=== PATIENT | male | born 1950 | race Caucasian/White ===

== ENCOUNTER 2019-02-26 16:48 | Emergency (ER) | payer MEDICARE, OTHER ==
[~2019-02-26 16:48] MED LIST: EPINEPHRINE ABBOJECT 1 MG ONE; SODIUM BICARBONATE 50 MEQ/50 ML ABBOJECT IV ONE
[2019-02-26] MEDS ORDERED: Sodium Chloride 0.9% 1000 ML 1,000 ML IV ONE (17:10)
[2019-02-26 17:21] LABS: Hematocrit 44.3 % (42-50); Hemoglobin 14.7 gm/dl (12.5-18.0); Mean Cell Volume 96.9 fl (78-100); Mean Corpuscular Hemoglobin 32.2 pg (26-32); Mean Corpuscular Hgb Concent. 33.2 g/dl (32-36); Mean Platelet Volume 13.4 fl (6-9.5); Platelet Count 110 K/mm3 (150-450); Red Blood Count 4.57 M/mm3 (4.1-5.6); Red Cell Distribution Width 12.4 % (11.5-14.0); White Blood Count 15.1 K/mm3 (4.0-10.5)
[2019-02-26 17:23] LABS: VBG BASE EXCESS -20.4 (-2.0-2.0); VBG CARBOXYHEMOGLOBIN 3.2 % T HGB (0.0-6.9); VBG HCO3- 16.1 meq/L (22-28); VBG HEMOGLOBIN 14.9; VBG O2 SATURATION 33.5 (95-100); VBG POTASSIUM 3.4 (3.5-5.1)
[2019-02-26 17:24] LABS: VBG pH 6.81 (7.32-7.42)
[2019-02-26 17:26] LABS: ALBUMIN 3.1 g/dL (3.5-5.0); BILIRUBIN,TOTAL 0.4 mg/dL (0.2-1.3); Creatinine 1 1.49 mg/dL (0.66-1.25); Potassium 3.3 mmol/L (3.5-5.1); Total Protein 5.9 g/dL (6.3-8.2)
--- NOTE | 2019-02-26 17:31 | ERPHSYRPT ---
- History of Present Illness Source: EMS Exam Limitations: clinical condition Physician History: Pt presented to the ER via EMS, coding. Pt was at home, and he fell to the floor coded. EMS were called and got to house in 4 min. The pt was intubated and coded by EMS. He did get shocked twice on route. By the time the pt got to the ER, he was in PEA arrest. compression and code resumed. Timing/Duration: today Activities at Onset: none Modifying Factors: Improves With: nothing Aspirin Treatment Today: unknown Allergies/Adverse Reactions: cilastatin sodium [From Primaxin IV] Allergy (Verified 09/20/16 20:41) ciprofloxacin [From Cipro] Allergy (Verified 09/20/16 20:41) ciprofloxacin HCl [From Cipro] Allergy (Verified 09/20/16 20:41) codeine [Codeine] Allergy (Verified 09/20/16 20:41) imipenem [From Primaxin IV] Allergy (Verified 09/20/16 20:41) Penicillins Allergy (Verified 09/20/16 20:41) Home Medications: Metformin HCl 1000 mg [Glucophage 1000 MG] 1,000 mg PO BID 03/21/12 [History] Metoprolol Tartrate 25 mg [Lopressor 25MG Tab] 25 mg PO BID 03/21/12 [ History] Omeprazole 20 MG [Prilosec 20 mg] 60 mg PO DAILY 03/21/12 [History] Citalopram Hydrobromide [Citalopram HBr] 40 mg PO DAILY 08/04/12 [History] Simvastatin 80 mg PO .UNKNOWN 06/19/14 [History] Tramadol HCl 50 mg [Ultram 50 mg] 50 mg PO .UNKNOWN 06/19/14 [History] Lisinopril 40 mg PO DAILY 06/05/15 [History] Hx Tetanus, Diphtheria Vaccination/Date Given: Yes Hx Influenza Vaccination/Date Given: Yes Hx Pneumococcal Vaccination/Date Given: Yes - Past Medical History Pertinent Past Medical History: Yes Neurological History: No Pertinent History ENT History: Other Cardiac History: Hypertension, Myocardial Infarction ([place]) Respiratory History: No Pertinent History Endocrine Medical History: Diabetes Type II Musculoskeletal History: Arthritis, Degenerative Disk Disease, Other (status post lumbar fractures from severe fall past year) GI Medical History: No Pertinent History History: No Pertinent History Psycho-Social History: Depression Male Reproductive Disorders: No Pertinent History - Past Surgical History Past Surgical History: Yes Neuro Surgical History: No Pertinent History Cardiac: Cardiac Catheterization, Cardiac Stent Respiratory: No Pertinent History Gastrointestinal: Appendectomy Genitourinary: No Pertinent History Musculoskeletal: Joint Replacement, Other Male Surgical History: No Pertinent History Other Surgical History: bilat knees replacement - Social History Smoking Status: Former smoker Exposure to second hand smoke: Yes Drug Use: none Patient Lives Alone: Yes - Physical Exam General Appearance: other (Pt in PEA arrest, never got pulses back.) - Course Nursing assessment & vital signs reviewed: Yes Ordered Tests: Active Orders 24 hr Category Date Time Status CBC W DIFF Stat Lab 02/26/19 16:30 Completed CMP Stat Lab 02/26/19 16:30 Received Manual Differential NC Stat Lab 02/26/19 16:30 Completed TROPONIN Stat Lab 02/26/19 16:30 Received VENOUS BLOOD GAS Stat Lab 02/26/19 16:30 Completed Medication Summary Discontinued Medications Generic Name Dose Route Start Last Admin Trade Name Freq PRN Reason Stop Dose Admin Epinephrine HCl 4 mg 02/26/19 15:10 Epinephrine Abboject 1 Mg .ROUTE 02/26/19 15:11 .STK-MED ONE Sodium Bicarbonate 50 meq 02/26/19 15:10 Sodium Bicarbonate 50 Meq/50 Ml Abboject IV 02/26/19 15:11 .STK-MED ONE Lab/Rad Data: Laboratory Result Diagrams 02/26/19 16:30 Laboratory Results 02/26/19 02/26/19 Range/Units 16:30 16:30 WBC 15.1 H (4.0-10.5) K/mm3 RBC 4.57 (4.1-5.6) M/mm3 Hgb 14.7 (12.5-18.0) gm/dl Hct 44.3 (42-50) % MCV 96.9 (78-100) fl MCH 32.2 H (26-32) pg MCHC 33.2 (32-36) g/dl RDW 12.4 (11.5-14.0) % Plt Count 110 L (150-450) K/mm3 MPV 13.4 H (6-9.5) fl pO2/FiO2 Ratio 100.0 % VBG pH 6.81 L* (7.32-7.42) VBG pCO2 at Pat Temp 101 H* (42-55) mm/Hg VBG pO2 at Pat Temp 30 (25-40) mm/Hg VBG HCO3 16.1 L* (22-28) meq/L VBG O2 Sat ([place]) 33.5 L (95-100) VBG Base Excess -20.4 L (-2.0-2.0) VBG Hemoglobin 14.9 VBG Carboxyhemoglobin 3.2 (0.0-6.9) % T HGB POC Potassium 3.4 L (3.5-5.1) - Progress Progress: unchanged Progress Note: 02/26/19 17:30 Pt had chest compression and a code for PEA arrest was done. Multiple doses of Epi and 1 bicarb amp was given. Pt never got pulses back. Pt was pronounced at 16:59. - Departure Departure Disposition: Clinical Impression: Cardiac arrest Condition: Critical Care Time: Yes Critical Care Time(excluding separately billable procedures): 30-74 minutes Referrals: DOCTOR,NO FAMILY [Primary Care Provider] -
[2019-02-26 17:38] VITALS: PULSE 0
[2019-02-26 17:58] LABS: TROPONIN 0.031 ng/mL (0.000-0.034)
[2019-02-27 00:20] LABS: Eosinophil 2 % (0.00-3.0); Lymphocytes 61 % (24-44); Monocyte 4 % (0.0-12.0); Neutrophils 33 % (36.-66.); Platelet Estimate NORMAL (NORMAL); Total Cells Counted 100
== END 2019-02-26 18:30 | disposition expired ==
LOC: ED 16:48
DX: I46.9 Cardiac arrest, cause unspecified (principal); I10 Essential (primary) hypertension; I25.2 Old myocardial infarction; E11.9 Type 2 diabetes mellitus without complications; Z79.4 Long term (current) use of insulin; M19.90 Unspecified osteoarthritis, unspecified site; Z79.899 Other long term (current) drug therapy
CPT/HCPCS: 36415; 80053; 82805; 84484; 85025; 94799; 96374; 96375; 96376; 99284; 99291; J0171